=== PATIENT | female | born 1950 | race African-American/Black ===

== ENCOUNTER 2020-06-23 09:42 | Inpatient (IN) | payer MEDICARE ==
[~2020-06-23] VITALS: Ht 162.6 cm; Wt 91.3 kg
[2020-06-23 09:43] VITALS: BP 165/90
[2020-06-23] MEDS ORDERED: OMEPRAZOLE 20 M20 M1 PO (09:57)
[2020-06-23] MEDS ORDERED: DULOXETINE HCL30 MG PO (09:57)
[2020-06-23] MEDS ORDERED: MEVACOR10 MG PO (09:57)
[2020-06-23] MEDS ORDERED: SYMBICORT160 MCG/4. INH (09:57)
[2020-06-23] MEDS ORDERED: HYDROCHLOROTHIA50 MG PO (09:57)
[2020-06-23] MEDS ORDERED: K-DUR 20 MEQ T20 MEQ PO (09:57)
[2020-06-23 10:37] LABS: HEMATOCRIT 38.2 % (37.0-47.0); HEMOGLOBIN 13.4 gm/dL (12.0-15.0); MCH 33.2 pg (26.0-34.0); MCHC 35.2 g/dL (28.0-37.0); MCV 94.3 fL (80.0-100.0); RBC 4.05 mil/uL (4.20-5.00); RDW 14.9 % (10.5-14.5); WBC 8.4 thou/uL (4.0-11.0)
[2020-06-23 12:02] LABS: ANION GAP 13 mmol/L (7-16); BUN 14 mg/dL (7-18); CALCIUM 8.9 mg/dL (8.5-10.1); CHLORIDE 90 mmol/L (98-107); CO2 30 mmol/L (21-32); CREATININE 0.7 mg/dL (0.6-1.0); GLUCOSE 114 mg/dL (74-106); SODIUM 133 mmol/L (136-145); TROPONIN-I <0.06 ng/mL (<0.06)
[2020-06-23 12:04] LABS: POTASSIUM 2.8 mmol/L (3.5-5.1)
--- NOTE | 2020-06-23 12:21 | EKG ---
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 : 1950 Requested By: Angus Poon Order Number: [id number] MD: Orville Márquez Measurements Intervals [place] Rate: 86 P: 19 IN: 167 QRS: -67 QRSD: 105 T: -16 QT: 430 QTc: 515 Interpretive Statements Sinus rhythm Probable left atrial enlargement Consider right ventricular hypertrophy Borderline T abnormalities, inferior leads No previous ECG available for comparison Electronically Signed On 06-23-2020 12:21:35 CDT by Orville Márquez [email or web address] <ELECTRONICALLY SIGNED> By: Orville Márquez MD, FACC 06/23/20 1221 1050 1050 Orville Márquez MD, FAC /EPI
[2020-06-23 14:06] LABS: BE(vivo) 3.2 mmol/L (-2 to +3); HCO3 25.7 mmol/L (22.0-26.0); PCO2 33.3 mmHg (35.0-45.0); PO2 71.8 mmHg (80.0-100.0); pH 7.506 (7.360-7.450); sO2 95.8 % (92.0-98.0)
--- NOTE | 2020-06-23 14:30 | NUR ---
CALLED TO GIVE REPORT AND WAS TOLD NURSE CLEARED IT WITH THE AIRCRAFT [employer] MECHANIC LAURA TO GO TO LUNCH AND THEN TAKE REPORT. NURSE JUST LEFT FOR LUNCH
[2020-06-23 15:15] VITALS: BP 157/85
[2020-06-23 15:56] VITALS: BP 147/86
--- NOTE | 2020-06-23 17:51 | NUR ---
ASSUMED CARE APPROX 1530. PT ALERT AND ORIENTED X4. ASSESSMENT CHARTED AND VSS. PT AFEBRILE. ON 3LNC W/O SIGNS OF DISTRESS NOTED. NOT ON TELE MONITOR. REPORTS THAT HER SPOUSE IS COVID POSITIVE AND WAS DX LAST TUESDAY. ADMISSION COMPLETED W/ PT. PT STATES THAT SHE HAS RECENTLY SIGNED DNR. WILL CONTACT PT'S DTR PER HER REQUEST TO GET A COPY. DR. SEVERINO NOTIFIED TO CHANGE CODE STATUS. PT RESTING CONFORMTABLY IN BED. WILL CONTINUE TO MONITOR.
[2020-06-23 18:39] LABS: ALBUMIN 3.6 g/dL (3.4-5.0); DIRECT BILIRUBIN 0.7 mg/dL (<0.1-0.2); TOTAL BILIRUBIN 1.3 mg/dL (0.2-1.0); TOTAL PROTEIN 8.5 g/dL (6.4-8.2)
[2020-06-23 18:59] VITALS: BP 159/92
[2020-06-24 04:30] VITALS: BP 168/96
--- NOTE | 2020-06-24 05:17 | NUR ---
ASSUMED CARE AT 1900, ASSESSMENT COMPLETED. PT DENIES PAIN OR NAUSEA. REPORTS SOB IMPROVED SINCE BEING ON THE O2. PT HAS DELAYED RESPONSES AND STRUGGLES SOMEWHAT TO EXPRESS HER THOUGHTS. HAD AN EXTERNAL CATH IN PLACE OVERNIGHT BUT DID NOT HAVE ANY URINARY OUTPUT-ASKED HER TO TRY TO VOID BUT SHE WAS UNABLE UNTIL WHILE BLADDER SCANNING CAUSED A LARGE, SPONTANEOUS VOID; INCONT OF LIQUID STOOL TWICE BUT WAS NOT AWARE OF IT. THIS AM, PT STATED "I'M HAVING A MENTAL BREAKDOWN", FEELING "LIKE I HAVEN'T SEEN MY FAMILY IN FOREVER" DESPITE A CALM/FLAT AFFECT. TREMOR NOTED IN BOTH HANDS, RIGHT WORSE THAN LEFT. NO OTHER CONCERNS, WILL CONTINUE TO MONITOR.
[2020-06-24 05:50] LABS: ABSOLUTE NEUTROPHILS 5.2 thou/uL (1.4-8.2); BASOPHILS 0.1 % (0.0-2.0); HEMATOCRIT 39.5 % (37.0-47.0); HEMOGLOBIN 13.5 gm/dL (12.0-15.0); LYMPHOCYTES 5.5 % (24.0-44.0); MCH 33.2 pg (26.0-34.0); MCHC 34.1 g/dL (28.0-37.0); MCV 97.2 fL (80.0-100.0); MONOCYTES 4.7 % (1.0-8.0); PLATELET COUNT 236 thou/uL (150-400); POLYS 89.7 % (36.0-66.0); RBC 4.07 mil/uL (4.20-5.00); RDW 13.6 % (10.5-14.5); WBC 5.8 thou/uL (4.0-11.0)
[2020-06-24 06:14] LABS: ALBUMIN 2.7 g/dL (3.4-5.0); CALCIUM 8.7 mg/dL (8.5-10.1); CREATININE 0.7 mg/dL (0.6-1.0); MAGNESIUM 2.1 mg/dL (1.8-2.4); POTASSIUM 3.7 mmol/L (3.5-5.1); TOTAL BILIRUBIN 1.2 mg/dL (0.2-1.0); TOTAL PROTEIN 7.7 g/dL (6.4-8.2)
[2020-06-24 07:23] VITALS: BP 157/89
[2020-06-24 11:09] VITALS: BP 116/58
--- NOTE | 2020-06-24 13:17 | NUR ---
INITIAL ASSESSMENT: SW reviewed chart and spoke with nursing and attending physician. Pt was admitted from home due to weakness/shortness of air. Pt placed in Enhanced Isolation to r/o COVID-19. Pt had low grade fever and is on 3L of O2. Pt is on IV abx. Pt's COVID test is pending. Pt's spouse has tested positive for COVID. SW spoke with pt via phone. Introduced role of SW. Pt is alert/orientated and states she lives at home with her . Pt states she has a walker and w/c at home. No stairs on the main living area. Pt does not need to go down into the basement. Pt has used HH in the past, but unsure name of provider. No hx of post-acute placement. Pt's PCP is Dr. Shruti Larry. Pt would benefit from therapy evals when able to participate. SW is following to assist as needed with discharge planning.
--- NOTE | 2020-06-24 14:17 | NUR ---
WOUND CONSULT; THE ASSESSMENT WAS LIMITED TODAY TO THE PICTURES AND THE WRINGER AND SETTER DUE TO COVID RESTRICTIONS. THERE IS A SMALL AMOUNT OF SKIN BREAKDOWN IN THE GLUTEAL CREASE AND COCCYX. NO ADDITIONAL S/S OF INFECTION WAS NOTED FROM THE RN REPORT. RECOMMENDATIONS; 1- TURN Q2H MINIMUMALLY 2- APPLY ZGUARD BID/PRN. DISCUSSED WITH RN
[2020-06-24 15:21] VITALS: BP 143/73
--- NOTE | 2020-06-24 17:18 | NUR ---
ASSUMED CARE APPROX 0700. PT ALERT AND ORIENTED. ASSESSMENT CHARTED AND VSS. PT DENIES PAIN. AFEBRILE THIS SHIFT. ON 3LNC W/O SIGNS OF DISTRESS NOTED. PT DENIES SHORTNESS OF BREATH OR DYSPNEA. COVID RESULTS ARE POSITIVE. DR. SEVERINO NOTIFIED. PT'S DTR, RASHEEDA, UPDATED ON STATUS. NOT MONITORED ON TELE. PT RESTING IN BED. WILL CONTINUE TO MONITOR.
[2020-06-24 19:43] VITALS: BP 123/63
--- NOTE | 2020-06-25 00:05 | NUR ---
PT SEEN BY [facility] THIS EVENING, MULTIPLE ORDERS GIVEN FOR VARIOUS NASAL SWABS, URINE SAMPLE, REMDESIVIR, AND PLASMA. DISCUSSED THESE ORDERS WITH PT, TRYING TO GO OVER RISK/BENEFITS AND WHY EVERYTHING WAS ORDERED. PT BECAME OVERWHELMED; ALLOWED LAB TO DRAW BLOOD FOR CULTURES AND TYPE/SCREEN, BUT WOULD NOT DO MRSA AND RESP SWABS OR STRAIGHT CATH FOR URINE SAMPLE. WOULD NOT DISCUSS PLASMA OR REMDESIVIR, SAYING SHE WASN'T DOING ANYTHING ELSE TONIGHT. SHE WANTS HER DAUGHTER TO GO OVER THESE TESTS AND MEDICATIONS BEFORE SHE WILL AGREE TO TREATMENT.
[2020-06-25 06:40] VITALS: BP 141/80
[2020-06-25 07:23] LABS: HEMATOCRIT 39.9 % (37.0-47.0); HEMOGLOBIN 13.2 gm/dL (12.0-15.0); MCH 32.6 pg (26.0-34.0); MCHC 33.1 g/dL (28.0-37.0); MCV 98.6 fL (80.0-100.0); RBC 4.05 mil/uL (4.20-5.00); RDW 13.7 % (10.5-14.5); WBC 10.1 thou/uL (4.0-11.0)
[2020-06-25 07:43] LABS: ALBUMIN 2.8 g/dL (3.4-5.0); CALCIUM 9.3 mg/dL (8.5-10.1); CREATININE 0.8 mg/dL (0.6-1.0); TOTAL BILIRUBIN 0.7 mg/dL (0.2-1.0); TOTAL PROTEIN 8.4 g/dL (6.4-8.2)
[2020-06-25 09:01] VITALS: BP 148/77
[2020-06-25 09:02] LABS: INR 1.1; PROTIME 10.8 Seconds (9.3-11.4)
[2020-06-25 10:08] LABS: ABSOLUTE NEUTROPHILS 9.4 thou/uL (1.4-8.2)
[2020-06-25 10:09] LABS: LARGE PLATELETS OCCASIONAL; PLATELET COUNT 269 thou/uL (150-400)
[2020-06-25 10:10] LABS: ANISOCYTOSIS SLIGHT; POIKILOCYTOSIS SLIGHT
--- NOTE | 2020-06-25 12:49 | NUR ---
SW reviewed chart and spoke with nursing and attending physician. Pt remains in Enhanced Isolation. Pt's COVID test is positive. Pt is afebrile and on 2L of O2. Pt is on IV abx. Pt to start course of Remdesivir today. Pt will need therapy orders to evaluate pt for discharge needs. SW is following to assist as needed with discharge planning.
--- NOTE | 2020-06-25 18:44 | NUR ---
PT ALERT AND ORIENTED TIMES THREE WITH PERIODS OF CONFUSION. VSS. PT DENIES PAIN. PT HAS VERY POOR APPETITE. SR ON TELE. SPOKE WITH PT DAUGHTER TODAY AND UPDATED HER ON PT CARE. WILL CONTINUE TO MONITOR.
[2020-06-25 19:46] VITALS: BP 137/81
--- NOTE | 2020-06-26 03:36 | NUR ---
Patient making slow progress towards outcome goals. Vital signs stable. Cntinues to feel short of air with any activity requiring oxygen at 2L/NC to maintain sats above 90%. Very flat affect with very poor appetite. Incontinent of urine.
[2020-06-26 04:18] VITALS: BP 145/72
[2020-06-26 07:00] VITALS: BP 159/84
--- NOTE | 2020-06-26 10:09 | NUR ---
Assumed care at 0700, assessment and vital signs completed per ICU protocol. RN will continue to monitor.
[2020-06-26 13:30] LABS: ALBUMIN 2.8 g/dL (3.4-5.0); CREATININE 0.8 mg/dL (0.6-1.0); DIRECT BILIRUBIN 0.6 mg/dL (<0.1-0.2); TOTAL BILIRUBIN 0.9 mg/dL (0.2-1.0)
--- NOTE | 2020-06-26 14:06 | NUR ---
WOUND CARE F/U; DISCUSSED THE PATIENT SACRUM/COCCYX WOUND WITH THE RN. DUE TO COVID RESTRICTIONS. THE RN CONFIRMED THE PICTURES ARE CONSISTANT WITH THIER ASSESSMENT. THEREFORE NO CHANGES NEEDED. NO ODOR OR ANY S/S OF INFECTION. RECOMMENDATION; CONTINUE CURRENT TREATMENT.
--- NOTE | 2020-06-26 15:02 | NUR ---
VIOLETTE reviewed chart and spoke with nursing and attending physician. Pt remains in Enhanced Isolation due to COVID-19. Pt with low grade fever and is on 2L of O2. Pt is on IV abx/IV steroids and completing course of Remdesivir. Pt has had convalescent plasma. No weekend discharge anticipated. Pt will need HH at time of discharge. VIOLETTE placed call to pt's room. No answer. VIOLETTE spoke with pt's dtr, Paz, via phone. Introduced role of SW. Pt's dtr is agreeable with pt having HH when she is discharged. Options provided. No preference voiced. VIOLETTE confirmed pt's home address and phone number. VIOLETTE faxed referral to [facility] . Notified HH liaison. Plan is for pt to discharge home with HH when medically stable. VIOLETTE is following to assist as needed with discharge planning.
[2020-06-26 15:06] VITALS: BP 133/71
[2020-06-26 19:48] VITALS: BP 132/64
[2020-06-27 03:08] VITALS: BP 128/67
[2020-06-27 05:38] LABS: ALBUMIN 3.1 g/dL (3.4-5.0); DIRECT BILIRUBIN 0.7 mg/dL (<0.1-0.2); TOTAL BILIRUBIN 0.9 mg/dL (0.2-1.0); TOTAL PROTEIN 7.7 g/dL (6.4-8.2)
--- NOTE | 2020-06-27 06:42 | NUR ---
ON O2 AT 4L PER NC OVERNIGHT. DENIED ANY SOA WHILE AT REST. ENCOURAGED BUT PT REFUSED ANY TURNS OVERNIGHT. PERFUME MAKER REPORTS SHE HAD EVEN REFUSED TO BE CHECKED FOR INCONTINENCE A FEW TIMES OVERNIGHT.
--- NOTE | 2020-06-27 12:14 | NUR ---
PT CARE ASSUMED AT 0700, PT ALERT AND ORIENTED X4, DENIES NAUSEA AND VOMITTING. PT COMPLAINS OF SHOULDER AND ARM PAIN BILATERALLY, DR. NARANJO PAGED ABOUT PT PAIN. PT IS ON 3L OF OXYGEN, SOB WITH EXERTION. PT SEEMS TO BE WEAKER THIS MORNING AND REFUSE TO EAT HER BREAKFAST. PT ASSESSMENT AND VITALS SIGNS COMPLETED. REFUSE TO BE RESPOSITION, EDUACTION REINFORCED. WILL CONTINUE TO MONITOR.
--- NOTE | 2020-06-27 12:38 | NUR ---
VIOLETTE REVIEWED CHART AND SPOKE WITH NURSING AND ATTENDING PHYSICIAN. PT REMAINS IN ENHANCED ISOLATED DUE TO COVID-19. PT IS AFEBRILE AND ON 3L OF O2. PT IS ON IV ABX AND IV STEROIDS. PT IS COMPLETING COURSE OF REMDESIVIR. PT DID NOT WANT TO WORK WITH THERAPY EARLIER TODAY. NO WEEKEND DISCHARGE PLANNED. PT TO DISCHARGE HOME WITH [facility] NEXT WEEK. PT WILL NEED REST/EXERCISEO OXIMETRY TO BE ORDERED TO DETERMINE IF PT NEEDS HOME O2. VIOLETTE IS FOLLOWING TO ASSIST NEEDED WITH DISCHARGE PLANNING.
[2020-06-27 13:15] VITALS: BP 128/74
[2020-06-27 16:33] VITALS: BP 127/69
[2020-06-27 19:39] VITALS: BP 133/71
[2020-06-28 03:23] VITALS: BP 129/75
[2020-06-28 05:24] LABS: CREATININE 0.8 mg/dL (0.6-1.0); DIRECT BILIRUBIN 0.6 mg/dL (<0.1-0.2); TOTAL BILIRUBIN 1.1 mg/dL (0.2-1.0); TOTAL PROTEIN 8.2 g/dL (6.4-8.2)
--- NOTE | 2020-06-28 06:28 | NUR ---
PT MAKING SLOW PROGRESS TOWARDS GOALS. ON O2 AT 2L PER NC OVERNIGHT. NO SOA REPORTED WHILE AT REST. PT REPORTEDLY DID POORLY WITH PHYSICAL THERAPY. PT TEARFUL ABOUT HER PROGRESS. ENCOURAGED PT TO BE PLEASED WITH ANY PROGRESS THAT SHE MAKES AND TO CONTINUE TO MAKE THE EFFORT.
[2020-06-28 07:21] VITALS: BP 117/72
--- NOTE | 2020-06-28 11:49 | NUR ---
ASSUMED CARE APPROX 0700. PT ALERT AND ORIENTED X4. ASSESSMENT CHARTED AND VSS. PT NOT MONITORED ON TELE AT THIS TIME. S1-S2 HEARD. PT DENIES ACUTE PAIN. PT DENIES CHEST PAIN. PT ON 2LNC W/O SIGNS OF DISTRESS NOTED. WILL BEGIN TO WEAN PT OFF OF O2 THIS SHIFT PER DR. NARANJO. PT IS SLOWLY PROGRESSING TOWARDS PLAN OF CARE GOALS. WILL CONTINUE TO MONITOR. PT'S DAUGHTER UPDATED ON PT'S STATUS.
[2020-06-28 15:16] VITALS: BP 118/61
[2020-06-28 20:00] VITALS: BP 123/62
[2020-06-29 03:56] VITALS: BP 127/57
--- NOTE | 2020-06-29 05:30 | NUR ---
PT MAKING POOR PROGRESS TOWARDS GOALS. ON O2 AT 2L PER NC WITH O2 SAT NOTED TO BE 92-93%. EARLY AM, PT FOUND TO HAVE REMOVED THE O2 CANNULA. HER ROOM AIR O2 SAT WAS 88-89%. O2 SAT RETURNED TO 92-93% WITH 2L OF OXYGEN. OVERNIGHT PT ALSO STATED "I WANT TO GO HOME, TODAY." ENCOURAGED PT TO SPEAK WITH PHYSICIAN TODAY. SUPPORT GIVEN.
[2020-06-29 05:56] LABS: ALBUMIN 3.1 g/dL (3.4-5.0); CREATININE 0.8 mg/dL (0.6-1.0); DIRECT BILIRUBIN 0.6 mg/dL (<0.1-0.2); TOTAL BILIRUBIN 1.3 mg/dL (0.2-1.0); TOTAL PROTEIN 8.4 g/dL (6.4-8.2)
[2020-06-29 07:20] VITALS: BP 139/75
[2020-06-29 15:00] VITALS: BP 97/66
--- NOTE | 2020-06-29 15:41 | NUR ---
RN HAS ASSUMED PT'S CARE AT 0700AM , PT IS A&OX3, PT CAN FOLLOW COMMANDS, PT IS ON O2 2L/MIN/NC TO KEEP O2SAT > 92%, PT'S VS ARE STABLE, RN HAS NOTIFIED DR AND PT'S DAUGHTER ABOUT PT'S REFUSED MEALS AND DRINKING , PT IS CONTINUING ISOLATION FOR POSITIVE COVID. PT IS VERY WAEK AND SHE NEEDS HELP ADL , BUT PT REFUSED TO CHANGE POSITION .PT FINISHED LAST DOSE REMDESIVIR TODAY.
[2020-06-29 16:17] LABS: HEMATOCRIT 42.7 % (37.0-47.0); HEMOGLOBIN 13.9 gm/dL (12.0-15.0); MCH 32.7 pg (26.0-34.0); MCHC 32.5 g/dL (28.0-37.0); MCV 100.5 fL (80.0-100.0); RBC 4.25 mil/uL (4.20-5.00); RDW 14.2 % (10.5-14.5); WBC 13.7 thou/uL (4.0-11.0)
[2020-06-29 16:23] LABS: CALCIUM 9.3 mg/dL (8.5-10.1); CREATININE 0.8 mg/dL (0.6-1.0); POTASSIUM 3.1 mmol/L (3.5-5.1)
[2020-06-29 20:06] VITALS: BP 123/73
[2020-06-30 05:21] VITALS: BP 122/78
--- NOTE | 2020-06-30 06:03 | NUR ---
ASSUMED CARE AT 1900. PT FLAT, DIDN'T SPEAK MUCH WITH STAFF. GAVE TWO DOSES OF POTASSIUM FOR REPLACEMENT; ABLE TO GET PT TO EAT HALF A PUDDING CUP W/ FIRST DOSE BUT DECLINED TO FINISH IT. PT BECAME VERY WINDED WHILE TAKING HS MEDS, AND O2 SAT WAS ONLY 91% ON 2L; INCREASED O2 TO 3L OVERNIGHT, SAT WAS 96% THIS AM. TURNED PT EVERY 2-3 HOURS BUT SHE PROVIDED VERY LITTLE HELP AND IS A HEAVY TURN; INCONT OF URINE TWICE WITH PUREWICK ONLY CATCHING ABOUT 300 ML. NO OTHER CONCERNS, WILL CONTINUE TO MONITOR.
[2020-06-30 08:14] VITALS: BP 112/71
--- NOTE | 2020-06-30 09:38 | NUR ---
WOUND CARE F/U; DUE TO ISOLATION COVID RESTRICTIONS DISCUSSED WOUND CARE W/ MORTGAGE CLOSER TORREY, STATES SACRAL AREA STILL BEAN, PT INCONT URINE AND STOOL, USING PURE WICK CATH, REVIEWED CURRENT PHOTO ON CHART, SUGGESTED TO TAKE ANOTHER PHOTO TODAY IF AREA WORSE, DUE TO INCONT MORTGAGE CLOSER DID NOT THINK FOAM DRSG WOUND ADHERE RECOMMENDATIONS; CONT ZGUARD BID AND PRN, TURN [id number] MINIMAL. OFF LOADING, CONT PURE WIC CATH MORTGAGE CLOSER AWARE
--- NOTE | 2020-06-30 12:40 | NUR ---
VIOLETTE reviewed chart and spoke with nursing and attending physician. Pt remains in Enhanced Isolation due to COVID-19. Pt is afebrile and on 4L of O2. Pt is on IV steroids. Completed course of Remdesivir yesterday. Recommendation made for pt to go post-acute for continued rehab services and medical mgmt. VIOLETTE placed call to pt's room. No answer. VIOLETTE spoke with pt's dtr, Paz, via phone to discuss discharge disposition. Pt's dtr is agreeable with considering SNF placement for pt prior to returning home. SW provided options and discussed limited options for facilities due to insurance and pt being COVID positive. Pt's dtre verbalized understanding and is agreeable with checking with [facility] to see if they accept pt's insurance. VIOLETTE faxed face sheet and notified liaison. Awaiting input from [facility]. VIOLETTE is following to assist as needed with discharge planning.
--- NOTE | 2020-06-30 15:29 | NUR ---
RN HAS ASSUMED PT'S CARE AT 0700AM, PT IS A&OX3, PT CAN FOLLOW [employer]MMANDS, WE HAS ENCRANGED PT'S TO DRINKING AND EAT , RN HAS NOTIFIED DR AND PT'S DAUGHTER ABOUT PT'S REFUSED MEALS , PT IS ON O2 3L/MIN/NC, PT'S VS ARE STABLE, PT HAS PT/OT WORKING WITH HER.
--- NOTE | 2020-06-30 16:07 | NUR ---
PT ON SERVICE WITH [facility] PRIOR TO ADM FAXED CLINICAL UPDATE SPOKE WITH VINCENT SHE RECEIVED UPDATE.
[2020-06-30 16:17] VITALS: BP 120/77
[2020-06-30 18:56] VITALS: BP 124/76
--- NOTE | 2020-06-30 23:56 | NUR ---
ASSUMED PT CARE AROUND 1900. PT IS CALM AND COOPERATIVE. FLAT AFFECT. ABLE TO ANSWER MOST ORIENTATION QUESTIONS. VSS. AFEBRILE. REPOSITIONED TO PREVENT SKIN BREAKDOWN. Z GAURD BARRIER CREAM APPLIED TO COCCYX/SACRUM/BUTTOCKS REDNESS. SPO2 >92% ON 3L NC. FALL PRECAUTIONS IN PLACE. VERY POOR APPETITE. DID NOT WANT TO EAT HER DINNER. WILL GIVE REPORT TO RN WHO WILL ASSUME PT CARE FOR THE REST OF THE SHIFT.
--- NOTE | 2020-07-01 02:11 | NUR ---
ASSUMED CARE OF PT AT THIS TIME. PT APPEARS TO BE SLEEPING 02 SAT 95 % RESP EASY, HAS NO CONCERNS AT THIS TIME . WILL CONTINUE TO MONITOR AND REPORT CHANGES OR ABNORMAL FINDINGS.
[2020-07-01 04:20] VITALS: BP 125/82
--- NOTE | 2020-07-01 05:43 | NUR ---
ASSUMED CARE FROM EVENING NURSE PT RESTING IN BED ,SAT 97 % , DENIES PAIN, TURNED TO SIDE . PT INCONINTENT OF STOOL , PUREWICK EXTERNAL FEMALE CATH IN PLACE WITH LUIS DANIEL URINE. PT RESTED WELL THROUGHOUT HOURLY ROUNDS.WILL CONINTUE WITH CURRENT PLAN OF CARE.
[2020-07-01 07:10] VITALS: BP 128/83
[2020-07-01 15:40] VITALS: BP 112/76
--- NOTE | 2020-07-01 15:51 | NUR ---
VIOLETTE reviewed chart and spoke with nursing and attending physician. Pt remains in Enhanced Isolation due to COVID-19. PT is afebrile and on 3L of O2. Pt is on IV steroids. Pt has not been eating well. Pt's family is aware. VIOLETTE placed call into pt's room to discuss post-acute placement. No answer. VIOLETTE spoke with pt's dtr, Paz, via phone to discuss discharge plan. Pt's and dtr are both in agreement with SNF placement and preference is [facility] due to location. VIOLETTE discussed with [facility] post acute liaison, who states they are going to contact their sales development representative, to see if they can get authorization. They do not typically accept pt's insurance plan, but they will check. VIOLETTE faxed clinical information/COVID test results and therapy notes for review. VIOLETTE notified that facility has submitted for insurance auth. VIOLETTE is following to assist as needed with discharge planning.
--- NOTE | 2020-07-01 18:04 | NUR ---
ASSUMED CARE AT SHIFT CHANGE, ALERT AND FORGETFUL, VSS AND BG <200. PATIENT HAS NO APPETITE TO EAT OR DRINK THE SUPPLEMENT. DR NARANJO NOTIFIED THIS MORNING. Q2 POSITIONED FOR COMFORT AND NEEDED. MINIMAL VERBAL RESPONDS. AND WILL CONTINUE WITH POC.
[2020-07-01 19:15] VITALS: BP 126/80
[2020-07-02 02:26] VITALS: BP 130/85
--- NOTE | 2020-07-02 05:15 | NUR ---
PT MAKING POOR PROGRESS TOWARDS GOALS. PT IS WEAK AND NEED ASSISTANCE JUST TO ROLL OVER IN BED. PT ALSO VERY APPREHENSIVE WITH TURNS AND SHE IS REPORTEDLY VERY AFRAID OF FALLING. PT REPORTS THAT SHE HAS BEEN WORKING WITH PT BUT RN REPORTS STATE THAT SHE HAS BEEN REFUSING. CONTINUE TO MONITOR.
--- NOTE | 2020-07-02 05:21 | NUR ---
REPORT CALLED TO EARLE SMILEY ON 4W AT THIS TIME.
[2020-07-02 07:39] VITALS: BP 105/68
--- NOTE | 2020-07-02 15:47 | NUR ---
VIOLETTE reviewed chart and spoke with nursing and attending physician. Pt is progressing towards goals for discharge to [facility]. Pt remains in Enhanced Isolation due to COVID-19. Pt is afebrile and on 2L of O2. VIOLETTE faxed clinical updates to [facility] for review. Awaiting additional therapy notes to send. VIOLETTE requested therapy to see pt early tomorrow, in order to send to the facility for insurance authorization. VIOLETTE placed call to pt's room. No answer. VIOLETTE spoke with pt's dtr, Paz, via phone to provide update. Paz states she is keeping pt updated when she is able to speak with her mother via phone or Face Time. VIOLETTE is following to assist as needed with discharge planning.
[2020-07-02 16:00] VITALS: BP 118/78
[2020-07-02 19:35] VITALS: BP 111/66
--- NOTE | 2020-07-02 19:54 | NUR ---
PT HAS POOR APPETITE...SHE DID ASK FOR JELLO X 2 AND HOT TEA...VERY SAD AFFECT. SHE LOST HER SISTER LAST WEEK...SHE DID FACETIME WITH HER DAUGHTER AND HAD A HUGE SMILE AND DID CONVERSE WITH HER WELL...
[2020-07-03 03:35] VITALS: BP 104/71
--- NOTE | 2020-07-03 04:58 | NUR ---
PT MAKING POOR PROGRESS TOWARDS GOALS. PT FREQUENTLY REFUSES TURNS. REQUIRES AT LEAST ONE ASSIST TO TURN IN BED. HAS EVEN STATED THAT SHE IS UNABLE TO LIFT THE JUG OF WATER WITHOUT ASSISTANCE. ENCOURAGEMENT GIVEN.
[2020-07-03 07:08] VITALS: BP 103/68
--- NOTE | 2020-07-03 12:50 | NUR ---
WOUND CARE F/U; DISCUSSED THE PATIENT WITH THE RN TODAY. CONVID RESTRICTIONS MANDATED. THE PATIENTS BUTTOCKS AREAS IS INTACT NAND REMAINS HEALED. ZGUARD IS IN USE AND WILL CONTINUE. NO OTHER SKIN ISSUES. RECOMMENDATIONS; NO CHANGES WE WILL CONTINUE TO MONITOR.
[2020-07-03 15:43] VITALS: BP 102/66
--- NOTE | 2020-07-03 15:47 | NUR ---
VIOLETTE reviewed chart and spoke with nursing and attending physician. Pt remains in Enhanced Isolation due to COVID-19. Pt is afebrile and on 2L of O2. VIOLETTE faxed updated clinical and therapy notes for review. Discussed with [facility] post-acute liaison. Awaiting input from pt's insurance. VIOLETTE placed call to pt's room. No answer. VIOLETTE spoke with pt's dtr, Paz, via phone to provide update. Paz states that she and her family were able to Face Time pt yesterday and encouraged her to work with therapy, so she can move to the SNF. Pt's family would like to continue Face Time visits. VIOLETTE is following to assist as needed with discharge planning.
[2020-07-03 19:04] VITALS: BP 112/70
--- NOTE | 2020-07-04 04:07 | NUR ---
PT MAKING NO PROGRESS TOWARDS GOALS. PT AT TIMES WILL NOT EVEN SPEAK, SHE WILL ONLY MAKE HAND GESTURES TO RAISE OR LOWER HER BED. SHE SEEMS TO HAVE DIFFICULTY DRINKING WATER FROM A STRAW, IF SHE DOES NOT HAVE THE STRENGTH TO SUCK FLUID UP. PER DAY RN, PT WOULD NOT TAKE ANY FOOD OR FLUID. ALSO THAT SHE SPIT HER PILLS OUT. CONTINUE TO MONITOR.
[2020-07-04 04:50] VITALS: BP 101/65
[2020-07-04 07:32] VITALS: BP 90/55
[2020-07-04 12:26] LABS: HEMATOCRIT 50.6 % (37.0-47.0); HEMOGLOBIN 16.9 gm/dL (12.0-15.0); MCH 32.3 pg (26.0-34.0); MCHC 33.4 g/dL (28.0-37.0); MCV 96.8 fL (80.0-100.0); RBC 5.23 mil/uL (4.20-5.00); WBC 24.5 thou/uL (4.0-11.0)
[2020-07-04 12:43] LABS: CALCIUM 9.4 mg/dL (8.5-10.1); CREATININE 1.4 mg/dL (0.6-1.0); POTASSIUM 4.3 mmol/L (3.5-5.1)
[2020-07-04 13:42] LABS: ABSOLUTE NEUTROPHILS 23.5 thou/uL (1.4-8.2); PLATELET COUNT 202 thou/uL (150-400); PLATELET ESTIMATE NORMAL
--- NOTE | 2020-07-04 14:24 | NUR ---
Pt with extremely poor and minimal nutrition for 1 week. Pt refuses majority of meals or eats 5-10% of a few sporadic meals. Continues to refuse most supplements too, despite ongoing offerings and despite changes in type of supplement. Given lack of nutrition x 7 days or more, REC considering possible supplemental PPN start for means of nutrition as Dobbhoff tube for enteral nutrition would delay any possible SNF acceptance. RD will remain available as needed for nutrition recs per provider discretion.
[2020-07-04 15:01] LABS: URINE BILIRUBIN NEGATIVE (Negative); URINE BLOOD NEGATIVE (Negative); URINE CLARITY CLOUDY; URINE COLOR YELLOW; URINE GLUCOSE-RANDOM* NEGATIVE (Negative); URINE KETONES NEGATIVE (Negative); URINE LEUKOCYTES-REFLEX NEGATIVE (Negative); URINE NITRITE-REFLEX NEGATIVE (Negative); URINE PROTEIN (DIPSTICK) NEGATIVE (Negative); URINE SPECIFIC GRAVITY 1.025 (1.005-1.035)
--- NOTE | 2020-07-04 15:48 | NUR ---
SW reviewed chart and spoke with nursing and attending physician. Pt remains in Enhanced Isolation due to COVID-19. Pt is afebrile and on 1-2L of O2. Pt had increase in WBC. ID is following. VIOLETTE faxed clinical updates to [facility] for review. Will need insurance auth for placement. No therapy notes today. VIOLETTE placed call to pt's room. No answer. VIOLETTE spoke with pt's dtr, Paz, via phone to provide update. Pt's dtr states they were able to Face Time her earlier today and pt looked very tired. Pt's dtr is agreeable with plan for pt to go to [facility] when medically stable and insurance authorization is obtained. Weekend discharge not anticipated. VIOLETTE is follwoing to assist as needed with discharge planning.
[2020-07-04 16:30] VITALS: BP 101/69
--- NOTE | 2020-07-04 17:00 | NUR ---
PT CONTINUES TO REFUSE MEALS AND SUPPLEMENTS...VERY DEPRESSED RE SISTERS LAST WEAK...ATTTMEPTED FACETIME WITH DTR,SPOUSE AND GRANDSON BUT SHE TOLD THEM SHE WAS HAVING A BAD DAY AND DID NOT WANT TO TALK...
[2020-07-04 19:17] VITALS: BP 107/72
[2020-07-05 05:02] VITALS: BP 122/72
--- NOTE | 2020-07-05 06:35 | NUR ---
ASSUMED CARE FROM DAY SHIFT PT REMAIN WITH FLAT AFFECT ABLE TO TAKE PO MEDICATION WITH PUDDING, TURNED EVERY 2 HOURS, RESTED WELL THROUHGOUT HOURLY ROUNDS.
[2020-07-05 07:07] VITALS: BP 113/73
[2020-07-05 12:45] LABS: HEMATOCRIT 48.5 % (37.0-47.0); HEMOGLOBIN 15.9 gm/dL (12.0-15.0); MCH 32.4 pg (26.0-34.0); MCHC 32.8 g/dL (28.0-37.0); MCV 98.8 fL (80.0-100.0); RBC 4.91 mil/uL (4.20-5.00); RDW 14.3 % (10.5-14.5)
[2020-07-05 12:51] LABS: CREATININE 1.6 mg/dL (0.6-1.0); POTASSIUM 3.7 mmol/L (3.5-5.1)
[2020-07-05 13:30] LABS: ABSOLUTE NEUTROPHILS 21.3 thou/uL (1.4-8.2); LARGE PLATELETS FEW; PLATELET COUNT 164 thou/uL (150-400)
[2020-07-05 13:38] LABS: MONOCYTES 20.1 % (1.0-8.0)
[2020-07-05 15:22] VITALS: BP 209/149
[2020-07-05 15:35] VITALS: BP 101/60
[2020-07-05 20:23] VITALS: BP 112/71
--- NOTE | 2020-07-06 03:14 | NUR ---
Patient not maiking progress towards ouycome goals. Appetite poor, Affect very flat and refusng to take oral meds. Denies pain. Continues to require oxygen at 2L/NC. Incontinent of urine. High fall risks, fall precautions in place.
[2020-07-06 05:24] VITALS: BP 99/63
[2020-07-06 06:35] LABS: HEMATOCRIT 45.8 % (37.0-47.0); HEMOGLOBIN 14.9 gm/dL (12.0-15.0); MCH 32.4 pg (26.0-34.0); MCHC 32.5 g/dL (28.0-37.0); MCV 99.7 fL (80.0-100.0); RBC 4.59 mil/uL (4.20-5.00); RDW 14.4 % (10.5-14.5); WBC 18.7 thou/uL (4.0-11.0)
[2020-07-06 06:44] LABS: CALCIUM 8.9 mg/dL (8.5-10.1); CREATININE 1.3 mg/dL (0.6-1.0); POTASSIUM 3.3 mmol/L (3.5-5.1)
[2020-07-06 08:58] VITALS: BP 100/64
[2020-07-06 17:45] VITALS: BP 113/63
--- NOTE | 2020-07-06 18:23 | NUR ---
ASSUMED CARE OF PT AT 0700. FLAT AFFECT, APPEARS DEPRESSED. FACETIME'D WITH FAMILY. RELUCTANT WITH CARE, BUT AGREEABLE WITH ENCOURAGEMENT. INCONTINENT. ZGUARD APPLIED TO SACRAL AREA. TURNED Q2H AND PRN. SMALL APPETITE - DRINKS PART OF ENSURE. VITALS STABLE. WCM.
[2020-07-06 19:43] VITALS: BP 97/61
--- NOTE | 2020-07-07 03:31 | NUR ---
Patient making slow progress towards outcome goals. Vitals signs stable. Patient more compliant with taking medications tonight. Appetite remains poor. IVFluids infusing.
[2020-07-07 04:04] VITALS: BP 121/73
[2020-07-07 06:13] LABS: CALCIUM 8.5 mg/dL (8.5-10.1); CREATININE 1.1 mg/dL (0.6-1.0); HEMATOCRIT 42.8 % (37.0-47.0); HEMOGLOBIN 14.1 gm/dL (12.0-15.0); MCH 32.3 pg (26.0-34.0); MCHC 32.9 g/dL (28.0-37.0); MCV 98.3 fL (80.0-100.0); POTASSIUM 3.3 mmol/L (3.5-5.1); RBC 4.35 mil/uL (4.20-5.00); RDW 14.1 % (10.5-14.5); WBC 15.9 thou/uL (4.0-11.0)
[2020-07-07 06:14] VITALS: BP 104/59
[2020-07-07 07:28] VITALS: BP 87/47
--- NOTE | 2020-07-07 11:05 | NUR ---
WOUND CARE F/U; THE BUTTOCKS/SACRAL AREAS OF CONCERN REMAIN INTACT. NO S/S OF INFECTION. THE RN TODAY STATES NO OTHER AREAS OF CONCERN. WOUND CARE WILL SIGN OFF. RECONSULT IF NECCESSARY. DISCUSSED WITH RN
--- NOTE | 2020-07-07 11:41 | NUR ---
VIOLETTE reviewed chart and spoke with nursing and attending physician. Pt remains in Enhanced Isolation due to COVID-19. Pt is afebrile and on 2L of O2. Palliative care physician consulted to discuss plan of care/treatment goals with pt and family. VIOLETTE faxed clinical and therapy updates to [facility] for review. Awaiting insurance auth for skilled. VIOLETTE notified [facility] post-acute liaison. VIOLETTE is following to assist as needed with discharge planning.
[2020-07-07] MEDS ORDERED: LEVOFLOXACIN500 MG PO (14:56)
[2020-07-07] MEDS ORDERED: REMERON 30 MG T30 M1 PO (14:57)
[2020-07-07] MEDS ORDERED: ALBUTEROL2.5 MG/0.5 INH (14:57)
[2020-07-07] MEDS ORDERED: NYSTATIN100000 UNI SW&SWALLOW (14:57)
[2020-07-07] MEDS ORDERED: MEGESTROL400 MG/11 PO (14:58)
[2020-07-07] MEDS ORDERED: PREDNISONE 10 M10 M1 PO (14:59)
--- NOTE | 2020-07-07 18:22 | NUR ---
ASSUMED PATIENT CARE AT 0700. ALERT. DEPRESSED, POOR APPETITE. 2ND COVID TEST SENT. DC TO SNF SOON.
[2020-07-08] MEDS ORDERED: NYSTATIN100000 UNI SW&SWALLOW (08:40)
== END 2020-07-07 18:49 | DRG 177 ==
LOC: ER 09:42 → 3W 13:55 → EROBS 13:55 → 3W 15:26
PROVIDERS: Emergency Medicine; Hospitalist; Specialist; ADMIT Internal Medicine; ATTEND Internal Medicine
PROC: XW033E5 Introduction of Remdesivir Anti-infective into Peripheral Vein, Percutaneous Approach, New Technology Group 5 (ICD-10-PCS; principal; 2020-06-24)
PROC: XW033E5 Introduction of Remdesivir Anti-infective into Peripheral Vein, Percutaneous Approach, New Technology Group 5 (ICD-10-PCS; 2020-06-25)
PROC: XW033E5 Introduction of Remdesivir Anti-infective into Peripheral Vein, Percutaneous Approach, New Technology Group 5 (ICD-10-PCS; 2020-06-26)
DX: U07.1 COVID-19 (principal); J96.01 Acute respiratory failure with hypoxia; J12.89 Other viral pneumonia; E43 Unspecified severe protein-calorie malnutrition; E87.1 Hypo-osmolality and hyponatremia; J45.909 Unspecified asthma, uncomplicated; I10 Essential (primary) hypertension; E87.6 Hypokalemia; E78.5 Hyperlipidemia, unspecified; K21.9 Gastro-esophageal reflux disease without esophagitis; F32.9 Major depressive disorder, single episode, unspecified; M19.90 Unspecified osteoarthritis, unspecified site; M54.9 Dorsalgia, unspecified; Z90.11 Acquired absence of right breast and nipple; Z79.899 Other long term (current) drug therapy; Z88.1 Allergy status to other antibiotic agents; Z91.041 Radiographic dye allergy status; Z88.5 Allergy status to narcotic agent; Z91.09 Other allergy status, other than to drugs and biological substances; Z68.34 Body mass index [BMI] 34.0-34.9, adult; Z79.2 Long term (current) use of antibiotics
CPT/HCPCS: 10080